=== PATIENT | female | born 1980 | race Caucasian/White ===

== ENCOUNTER 2017-07-11 12:15 | Outpatient (CLI) | payer OTHER | END 2017-07-11 12:16 | disposition home or self-care (01) | LOC: BICRAD 12:15 | PROVIDERS: ATTEND Chiropractor | DX: M54.5 Low back pain (principal); M41.9 Scoliosis, unspecified | CPT/HCPCS: 72081 ==

== ENCOUNTER 2018-08-15 14:09 | Outpatient (CLI) | payer OTHER ==
--- NOTE | 2018-08-15 15:52 | ULT ---
SONOGRAM RIGHT BREAST LIMITED: HISTORY: Right breast palpable lump. FINDINGS: Sonographic evaluation of the lateral aspect of the right breast in the region of palpable concern sh ows dense fibroglandular tissue. A very subtle horizontal circumscribed hypoechoic asymmetry was lulu sured at 0.9 cm length x 0.4 cm depth. Subtle posterior acoustic enhancement. No suspicious charact eristics. This could represent normal breast tissue or a nonaggressive lesion such as fibroadenoma. IMPRESSION: BI-RADS category 2. Benign findings. Please see separate report regarding diagnostic mammography pe rformed on the same date. POS: [facility]
== END 2018-08-15 14:10 | disposition home or self-care (01) ==
LOC: BICMAMMO 14:09
PROVIDERS: ATTEND Obstetrics & Gynecology
DX: N64.89 Other specified disorders of breast (principal)
CPT/HCPCS: 77066; G0279